=== PATIENT | male | born 1960 | race Caucasian/White ===

== ENCOUNTER 2017-02-05 06:35 | Observation (INO) | payer BC, MEDICARE ==
[2017-01-30 09:00] LABS: BASOPHILS 0.3 %; BASOPHILS ABSOLUTE 0.02 10/3/uL (0.0-0.16); EOSINOPHILS 3.3 %; EOSINOPHILS ABSOLUTE 0.24 10/3/uL (0.0-0.53); HEMATOCRIT 41.4 % (40.0-51.0); HEMOGLOBIN 14.4 g/dL (13.6-17.8); IMMATURE GRANULOCYTES 0.1 %; IMMATURE GRANULOCYTES ABSOLUTE 0.01 10/3/uL (0.0-0.11); LYMPHOCYTES 31.2 %; LYMPHOCYTES ABSOLUTE 2.28 10/3/uL (0.67-4.30); MANUAL DIFF NO %; MEAN CORPUS HGB CONC 34.8 g/dL (32.0-36.0); MEAN CORPUSCULAR HEMOGLOB 32.9 pg (26.0-34.0); MEAN CORPUSCULAR VOLUME 94.5 fL (80-100); MEAN PLATELET VOLUME 10.1 fL (9.2-13.0); MONOCYTES 8.1 %; MONOCYTES ABSOLUTE 0.59 10/3/uL (0.21-1.20); NEUTROPHILS ABSOLUTE 4.16 10/3/uL (2.02-8.40); PLATELET COUNT 170 10/3/uL (150-400); RBC DISTRIBUTION WIDTH 13.5 % (12.0-16.0); RED CELL COUNT 4.38 10/6/uL (4.7-6.1); WHITE BLOOD CELLS 7.3 10/3/uL (4.5-10.5)
[2017-01-30 11:35] LABS: BUN (BLOOD UREA NITROGEN) 16 MG/DL (6-23); CHLORIDE, SERUM 109 MMOL/L (96-112); CO2 (CARBON DIOXIDE) 28 MMOL/L (24-34); CREATININE 1.24 MG/DL (0.70-1.30); GFR AFRICAN AMERICAN 74 ML/MIN (>=60); GFR NON AFRICAN AMERICAN 64 ML/MIN (>=60); POTASSIUM, SERUM 4.4 MMOL/L (3.5-5.3); SODIUM, SERUM 145 MMOL/L (135-148)
[2017-01-30 11:36] LABS: GLUCOSE, SERUM 117 MG/DL (60-99)
--- NOTE | ~2017-02-05 | OP ---
Record Of Operation [place] [id number] [place]. [address] NAME: EVA WADDELL : 58 STATUS : ADM Alfa PAT#: [id number] AGE: 56 ADM/REG DATE : 02/05/17 MR#: [id number] REPORT SERV DATE: 02/06/17 DICTATED BY: HARJINDER PEREA DATE: 02/06/17 REPORT STATUS : Draft TRANSCRIBED BY: MODL DATE: 02/06/17 DATE OF PROCEDURE: 02/05/2017 SURGERY PERFORMED AT: [facility]. SURGEON: Harjinder Perea D.P.M. IAP DISPLAYS ANALYST SURGEON: Joao Anderson DPM PREOPERATIVE DIAGNOSES: 1. Gastrocnemius equinus. 2. Unstable left flatfoot deformity secondary to left posterior tibial tendon dysfunction. POSTOPERATIVE DIAGNOSES: 1. Gastrocnemius equinus. 2. Unstable left flatfoot deformity secondary to left posterior tibial tendon dysfunction. PROCEDURES: 1. Left gastrocnemius recession. 2. Left Bassett calcaneal osteotomy. 3. Left medial displacement calcaneal osteotomy. 4. Left FDL tendon transfer. ANESTHESIA: General. HEMOSTASIS: 350 mmHg thigh tourniquet. ESTIMATED BLOOD LOSS: 50 mL. MATERIALS: 2-0 Vicryl, 3-0 Vicryl, skin royer, 2-0 and 0 FiberTape with Arthrex 7 mm Bio- Tenodesis screw and 3.5 mm Bio-Tenodesis screw. INJECTABLES: 40 mL of 1:1 mixture of 1% Xylocaine plain and 0.5% Marcaine plain. COMPLICATIONS: None. INDICATIONS: This is a 56-year-old gentleman with a longstanding history of multiple orthopedic maladies including chronic pain associated with degenerative joint disease as well as pain in both feet secondary to flatfoot deformity. The patient states that he has gradually developed more pain in his left foot over time, and clinical examination was consistent with severe collapse of the left medial longitudinal arch as well as hyperpronation of the left foot. Hyperpronation was indicated by a severely valgus resting calcaneal stance position of the left foot as compared to the right foot. The patient had difficulty with bilateral heel elevation as well as being unable to raise the left heel on his own. Clinical examination was consistent with instability of the midtarsal joint as well as gastrocnemius equinus as noted with a Silfverskiold test. Conservative care Record Of Operation [place] [address] [place]. [address] NAME: EVA WADDELL : 58 STATUS : ADM Alfa PAT#: [id number] AGE: 56 ADM/REG DATE : 02/05/17 MR#: [id number] REPORT SERV DATE: 02/06/17 DICTATED BY: HARJINDER PEREA DATE: 02/06/17 REPORT STATUS : Draft TRANSCRIBED BY: BIMAL DATE: 02/06/17 including orthotic management was utilized. The patient was placed in an Lina-type ankle foot orthotic to help control the instability in the left foot and stabilize the medial longitudinal arch. The patient had little relief with this device. MR examination of the left foot did reveal increased signal within the posterior tibial tendon consistent with a chronic tear of the posterior tibial tendon. Discussed at length with the patient the alternatives, benefits, possible complications of addressing his stage II posterior tibial tendon dysfunction surgically. Discussed with the patient that since this is stage II disease of the tendon that this could be repaired with osteotomy and tendon transfer versus rearfoot fusion. Recommended stabilizing the midtarsal joint through an Bassett calcaneal osteotomy, as well as addressing severe valgus of the left heel through a medial displacing medial displacement calcaneal osteotomy. We also discussed replacing the diseased tendon with the flexor digitorum longus tendon in order to further support the medial longitudinal arch. We discussed with the patient that a tendon transfer alone would not work without correcting the osseous deformities; the patient understood. We also discussed the deforming force of the Equinus upon the arch and recommended addressing this with a gastrocnemius recession. The procedures and recovery period were discussed at length with the patient. The patient understands that he will be nonweightbearing for at least eight weeks. No promises or guarantees were given. The patient was scheduled for surgery. BRIEF SUMMARY OF OPERATION: The patient was brought to the operating room, transferred to the operative table in supine position. Appropriate monitoring including EKG, blood pressure, and pulse oximeter were attached to the patient and found to be in good working order. IV access was established by Anesthesia. The patient received preoperative antibiotics. After patient was identified by the surgeon, general anesthesia was induced. The patient's left foot and leg were then prepped and draped in the usual sterile manner. Left foot and leg were elevated and exsanguinated. Pneumatic thigh tourniquet was raised to 350 mmHg. Attention was directed towards the medial aspect of the left leg just inferior to the medial head of the gastrocnemius tendon. A longitudinal incision was made just posterior to the medial border of the left tibia. Incision was deepened with blunt dissection. Superficial veins were identified and ligated via electrocautery. Neurovascular structure identified and retracted from the operative site. Exposure to the deep fascia was carried out and the deep fascia was incised exposing the medial aspect of the soleus muscle belly as well as the gastrocnemius aponeurosis. The aponeurosis was identified and isolated. The aponeurosis was transected horizontally in a Yu-type fashion. This was done with the left knee extended and good release of the aponeurosis was noted with 10 degrees of dorsiflexion of the left ankle with the knee extended, which was not possible prior to the recession of the gastrocnemius aponeurosis. The operative site was irrigated with normal saline. Deep fascia was reapproximated with 3-0 Vicryl suture. The subcutaneous tissue was also reapproximated with 3-0 Vicryl suture and skin was reapproximated with skin royer. Attention was directed toward the lateral aspect of the left foot where a curvilinear incision was made over the area of the sinus tarsi. The incision was deepened with sharp and blunt dissection. Superficial veins were identified and ligated via electrocautery. Neurovascular structures were identified, retracted from the operative site. The extensor digitorum brevis muscle belly was then identified and an incision was made in the deep Record Of Operation [address] [address] NAME: EVA WADDELL : 58 STATUS : ADM Alfa PAT#: [id number] AGE: 56 ADM/REG DATE : 02/05/17 MR#: [id number] REPORT SERV DATE: 02/06/17 DICTATED BY: HARJINDER PEREA DATE: 02/06/17 REPORT STATUS : Draft TRANSCRIBED BY: BIMAL DATE: 02/06/17 fascia just inferior to the muscle belly. The muscle belly was retracted superiorly, deep fascia retracted inferiorly. The peroneal tendons were also identified and they were retracted inferiorly as well. This exposed the lateral wall of the calcaneus just posterior to the calcaneocuboid joint. The calcaneocuboid joint was identified as well via fluoroscopy. Care was maintained not to disrupt the ligaments of the calcaneocuboid joint. The middle facet of the subtalar joint was identified via fluoroscopy and the area was marked on the lateral wall of the calcaneus. This area was measured to be approximately a centimeter proximal to the calcaneocuboid joint. The osteotomy was created in a through and through fashion parallel to the calcaneocuboid joint at this site. Once the osteotomy was completed, the osteotomy was distracted. An allogenic iliac crest tricortical wedge was then shaped to approximately 1 cm in width, and inserted into the osteotomy site lengthening the lateral column of the left foot. This in turn resulted in further stability to the metatarsal joint and plantarflexion of medial longitudinal arch by tightening the peroneus longus tendon. Good position of the bone graft and distraction to the osteotomy was confirmed via fluoroscopy. Operative site was copiously irrigated with normal saline. Attention was directed toward the lateral aspect of the left foot near the posterior calcaneus. With use of a surgical pin and fluoroscopy, the location of the medial calcaneal displacement osteotomy was identified. Adequate position of the pin at the site of the osteotomy was noted on the FluoroScan and this was marked on the skin. An incision was made over this area. Dissection through the superficial fascia was carried out via blunt dissection. Superficial veins were identified and ligated via electrocautery. The periosteum on the lateral wall of the calcaneus was identified and incised via sharp dissection. The periosteum was reflected exposing the lateral wall of the calcaneus. A through and through osteotomy in direction of the same line as the incision was performed. Once the osteotomy was completed, the posterior tuber of the calcaneus was translocated medially in order to centralize the calcaneus under the leg. Rigid internal fixation via good AO technique was then achieved at this osteotomy with a with a cannulated 6.7 mm partially-threaded Arthrex bone screw. Good position of the screw was confirmed via fluoroscopy within the body of the calcaneus. This was done in a percutaneous fashion through the posterior aspect of the left heel. The operative site was copiously irrigated with normal saline as well. Attention was directed toward the medial longitudinal arch where a curvilinear incision was made starting at the inferior tip of the tibial malleolus and extending out to the area of the medial aspect of the medial cuneiform. Incision was deepened with sharp and blunt dissection. Superficial veins were identified and ligated via electrocautery. Dissection was then carried out through the deep fascia identifying the posterior tibial tendon. The posterior tibial tendon was followed to its insertion at the navicular tuberosity where it was noted that the navicular was displaced slightly inferior on the head of the talus. The posterior tibial tendon was released from its insertion into the navicular tuberosity. The tendon was noted to be enlarged with some degeneration noted within the central portion of the tendon. Once released from its insertion, the distal aspect of posterior tibial tendon was removed. An incision was made in the floor of the posterior tibial tendon sheath exposing the tendon sheath and tendon of the flexor digitorum longus. The flexor digitorum longus tendon was exposed heading distally to the area of the master knot of Alvin. The Record Of Operation [facility] [address] [facility] [place]. [address] NAME: ANNALEE WADDELLLOGAN DUFF : 58 STATUS : ADM Alfa PAT#: [id number] AGE: 56 ADM/REG DATE : 02/05/17 MR#: [id number] REPORT SERV DATE: 02/06/17 DICTATED BY: HARJINDER PEREA DATE: 02/06/17 REPORT STATUS : Draft TRANSCRIBED BY: BIMAL DATE: 02/06/17 tendon was then transected just proximal to the master knot. A stitch was placed in the distal aspect of the flexor digitorum longus tendon in order to grasp the tendon to pass it through the transfer site. This was then wrapped in saline soaked gauze. It was noted that the spring ligament was also stretched due to the chronic flatfoot deformity. A suture anchor was placed in the medial aspect of the sustentaculum reynaldo parallel to the longitudinal axis of the calcaneus. This suture was going to be utilized to support the spring ligament through a drill hole in the navicular. The percutaneous pin was passed through the navicular tuberosity from superior to inferior. It was overdrilled with the reamer that was 6 mm. This corresponded to the diameter of the flexor digitorum longus tendon. The stitch used to support the spring ligament as well as the flexor digitorum longus tendon was passed through the drill hole superior to inferior. Both the support suture for the spring ligament and the flexor digitorum longus tendon transfer was secured with a 7 mm Arthrex Bio-Tenodesis screw. A slightly larger Bio-Tenodesis screw was utilized as the bone appeared to be slightly soft. The tendon transfer was secured in place with the foot and ankle in neutral position. It was noted that the tendon was secure and intact. There did not appear to be any laxities within the tendon. There did not appear to be any laxities within the repair of the spring ligament as well. Operative site was copiously irrigated with normal saline. The deep fascia and posterior tibial tendon sheath was reapproximated with 2-0 Vicryl suture. Subcutaneous tissue was reapproximated with 2-0 and 3-0 Vicryl suture. The skin was reapproximated with skin royer. Attention was directed toward the lateral incisions where the deep fascia over the Bassett calcaneal osteotomy distally was reapproximated with 2-0 Vicryl suture. Subcutaneous tissue was reapproximated with 3-0 Vicryl suture and skin was reapproximated with skin royer. The posterior calcaneal osteotomy site the subcutaneous tissue was reapproximated with 3-0 Vicryl suture and skin was reapproximated with skin royer. Skin royer were also utilized to reapproximate the small incision made over the posterior heel for insertion of the screw across the medial calcaneal displacement osteotomy. Standard postoperative dressing including Xeroform, dry sterile gauze were applied to the left foot. The tourniquet was let down and capillary refill was noted to return to the foot immediately and be well within normal limits and under three seconds. Operative site was infiltrated with 40 mL of a 1:1 mixture of 1% Xylocaine plain and 0.5% Marcaine plain prior to application of the postoperative dressing. The patient was then placed in a modified Teresa compression dressing with an AO splint. This was done with the ankle joint in neutral position. Good capillary refill to the distal toes on the left foot was noted after application of the postop dressings and splint. The patient tolerated the procedure and anesthesia well. The patient left the operating room and returned to recovery room with vital signs stable and vital signs intact. Neurovascular status of the upper extremity was confirmed to be within normal limits in the recovery room. The patient to be admitted to [facility] for 23-hour observation for postoperative antibiotics and postoperative pain management as well as DVT prophylaxis. Reiterated to the patient's family strict nonweightbearing of the left foot, and Physical Therapy consultation has been ordered to help the patient with crutch training as well as transfer training. Provided the patient's pain is managed well with p.o. pain medication, the patient will be able to go home tomorrow. The patient is to follow up in the office approximately in one week's time. The patient and the patient's family were instructed to Record Of Operation [facility] [address] [facility] [place]. [address] NAME: EVA WADDELL : 58 STATUS : ADM Alfa PAT#: [id number] AGE: 56 ADM/REG DATE : 02/05/17 MR#: [id number] REPORT SERV DATE: 02/06/17 DICTATED BY: HARJINDER PEREA DATE: 02/06/17 REPORT STATUS : Draft TRANSCRIBED BY: BIMAL DATE: 02/06/17 contact the office with any questions or concerns. /MODL Harjinder Perea D.P.M. / [id number] CC: George Barnes M.D.
--- NOTE | ~2017-02-05 | CN ---
Consultation Report [facility] [address] [place]. [address] NAME: EVA WADDELL : 58 STATUS : ADM Alfa PAT#: [id number] AGE: 56 ADM/REG DATE : 02/05/17 MR#: [id number] REPORT SERV DATE: 02/05/17 DICTATED BY: LUCIO SAHA DATE: 02/05/17 REPORT STATUS : Draft TRANSCRIBED BY: MODL DATE: 02/05/17 INTERNAL MEDICINE CONSULTATION DATE OF CONSULTATION: 02/05/2017 REASON FOR CONSULTATION: Medical management, significant chronic pain management, the patient sees Dr. Dean for his pain management concerns. HISTORY OF PRESENT ILLNESS: This is a 56-year-old male with known history of significant degenerative disc disease, required a laminectomy in the past, has had history of nephrolithiasis and kidney stone removal, significant osteoarthritis, known history of right wrist ORIF, left rotator cuff repair. The patient also with known history of depression, BPH significant, chronic opioid dependence at baseline, gets Dilaudid 4 mg 4 times a day by Pain Management with Lyrica 150 p.o. t.i.d., sees Dr. Dean. The patient has had increasing left foot pain with "flat feet" as a result, was admitted by Dr. Perea, hot frame tender who did a left tendon revision, left heel revision the cast from knee down, postop day 0. The patient is placed on a SPEECH AND HEARING DIRECTOR pump. The patient understands risks of respiratory depression. PAST MEDICAL HISTORY: See above. PAST SURGICAL HISTORY: See above. The patient denies any fevers, chills, nausea, vomiting, diarrhea, chest pain, or chest pressure. REVIEW OF SYSTEMS: Review of systems done, see HPI. Otherwise, negative. SOCIAL HISTORY: Does not currently smoke, do drugs or do alcohol. Only takes his prescription narcotics. FAMILY HISTORY: Hypertension at least in one parent. OBJECTIVE: VITAL SIGNS: 124/74, 96% on 2 L, 96 pulse, 99.1 temp. GENERAL: No acute distress. HEENT: PERRLA. No scleral icterus. CARDIOVASCULAR: Regular rate and rhythm. No murmur. RESPIRATORY: Decreased breath sounds bibasilar. ABDOMEN: Nontender nondistended. Positive bowel sounds. EXTREMITIES: No edema. No ecchymosis. NEUROLOGIC: A and O x4/4. GCS of 15. He has pinpoint pupils. PSYCH: . Consultation Report [facility] [address] [address] NAME: EVA WADDELL : 58 STATUS : ADM Alfa PAT#: [id number] AGE: 56 ADM/REG DATE : 02/05/17 MR#: [id number] REPORT SERV DATE: 02/05/17 DICTATED BY: LUCIO SAHA DATE: 02/05/17 REPORT STATUS : Draft TRANSCRIBED BY: BIMAL DATE: 02/05/17 IMPRESSION RECOMMENDATION: 1. Hypertension with tachyarrhythmia history in the past, is on atenolol, apparently well controlled. 2. Chronic opioid dependence and pain, takes Dilaudid 4 mg 4 times a day. 3. Neuropathic pain with Lyrica 150 p.o. t.i.d. PLAN: We will try to reduce SPEECH AND HEARING DIRECTOR. The patient is comfortable at this point, still on oxygen likely due to atelectasis and post-op anesthesia contribution. We will try to reduce his SPEECH AND HEARING DIRECTOR from 0.2 dose every 20 minutes, max lockout 0.6 every hour, and as an outpatient, we will defer to Dr. Dean, primarily recommended 4 mg 6 times a day with Lyrica 150 four times a day. Family stated that Dr. Dean advised to resume his home dose aspirin and atenolol, resume the aspirin tomorrow to ensure hemostasis is maintained, it takes 24 to 48 hours to secondary hemostasis. We will also have pharmacy evaluate the MAR, give incentive spirometry. Start on heparin regarding history of hypertension. See rest of my orders. All questions were answered. Thank you very much for this consultation. We will follow along with you. It took over 60 minutes to do. FLAVIO/BIMAL Lucio Saha DO / [id number] CC: George Barnes M.D.
[~2017-02-05 06:35] MED LIST: ABILIFY5 PO; AMBIEN CR12.5 MG PO; ARIMIDEX1 PO; ASAB PO; ASTELIN NAS; ATEN25 PO; CA-MG-ZINC PO; CRANBERRY500 MG PO; CYANO1000T PO; DEPO-TESTOS200 MG/ML IM; DIL4TAB PO; DLPA; DLPA PO; DOLOPHINE10 MG PO; FISH-EPA1000 MG PO; FLECTOR1.3 % TOP; FLOMAX4 PO; GLUCCHONDR PO; HCTZ25B PO; IBU400 PO; KLOR-CON M2020 MEQ PO; LYRICA150 MG PO; METHOC750B PO; MULTIPLE VIT PO; NEUR300 PO; PERCOCET1 TA4 PO; PROVIGIL2 PO; ROXICODONE15 MG PO; SAVELLA50 MG PO; SENTAB PO; TRAZ100 PO; VITAMIN B-121000 MC1 SL; VITD PO; VITE PO; WELLSR150 PO; ZOFRAN8 PO
[2017-02-06 07:32] LABS: BASOPHILS 0.1 %; BASOPHILS ABSOLUTE 0.01 10/3/uL (0.0-0.16); EOSINOPHILS 0 %; HEMATOCRIT 37.5 % (40.0-51.0); IMMATURE GRANULOCYTES 0.2 %; IMMATURE GRANULOCYTES ABSOLUTE 0.02 10/3/uL (0.0-0.11); LYMPHOCYTES ABSOLUTE 2.04 10/3/uL (0.67-4.30); MANUAL DIFF NO %; MEAN CORPUS HGB CONC 34.7 g/dL (32.0-36.0); MEAN CORPUSCULAR HEMOGLOB 33.2 pg (26.0-34.0); MEAN CORPUSCULAR VOLUME 95.7 fL (80-100); MEAN PLATELET VOLUME 10.5 fL (9.2-13.0); MONOCYTES 6.9 %; NEUTROPHILS 72.8 %; NEUTROPHILS ABSOLUTE 7.44 10/3/uL (2.02-8.40); PLATELET COUNT 173 10/3/uL (150-400); RBC DISTRIBUTION WIDTH 13.8 % (12.0-16.0); RED CELL COUNT 3.92 10/6/uL (4.7-6.1); WHITE BLOOD CELLS 10.2 10/3/uL (4.5-10.5)
[2017-02-06 07:47] LABS: BUN (BLOOD UREA NITROGEN) 11 MG/DL (6-23); CALCIUM, SERUM 8.5 MG/DL (8.5-10.4); CHLORIDE, SERUM 107 MMOL/L (96-112); CO2 (CARBON DIOXIDE) 26 MMOL/L (24-34); CREATININE 1.01 MG/DL (0.70-1.30); GFR AFRICAN AMERICAN 95 ML/MIN (>=60); GFR NON AFRICAN AMERICAN 82 ML/MIN (>=60); GLUCOSE, SERUM 144 MG/DL (60-99); PHOSPHORUS, SERUM 2.7 MG/DL (2.5-4.5); POTASSIUM, SERUM 3.9 MMOL/L (3.5-5.3); SODIUM, SERUM 143 MMOL/L (135-148)
[2017-02-06 17:51] LABS: PROCALCITONIN <0.05 ng/mL (<0.5)
[2017-02-07] MEDS ORDERED: DSS (14:28)
[2017-02-07] MEDS ORDERED: DIL2TAB PO (14:35)
== END 2017-02-07 16:37 | disposition home or self-care (01) ==
LOC: SDC 06:35 → SDC/OF 13:54 → 1SO 15:54
PROVIDERS: Podiatrist; Podiatrist Foot & Ankle Surgery
PROC: 0LXP0ZZ Transfer Left Lower Leg Tendon, Open Approach (ICD-10-PCS; 2017-02-05)
PROC: 0LSP0ZZ Reposition Left Lower Leg Tendon, Open Approach (ICD-10-PCS; principal; 2017-02-05 08:15)
PROC: 0QBM0ZZ Excision of Left Tarsal, Open Approach (ICD-10-PCS; 2017-02-05 08:15)
DX: M21.42 Flat foot [pes planus] (acquired), left foot (principal); M21.6X2 Other acquired deformities of left foot; M19.90 Unspecified osteoarthritis, unspecified site; G47.33 Obstructive sleep apnea (adult) (pediatric); Z99.89 Dependence on other enabling machines and devices; F32.9 Major depressive disorder, single episode, unspecified; Z88.5 Allergy status to narcotic agent; Z88.8 Allergy status to other drugs, medicaments and biological substances; Z79.82 Long term (current) use of aspirin; Z79.899 Other long term (current) drug therapy; Z98.1 Arthrodesis status; Z98.890 Other specified postprocedural states; Z98.41 Cataract extraction status, right eye; Z98.42 Cataract extraction status, left eye
CPT/HCPCS: 80048; 82533; 83036; 83735; 84100; 84145; 85025; 87040; 93005; 96372; 96374; 96375; 96376; 97110-GP; 97116-GP; 97161-GP; 97530-GP; A9270-GY; C1713; C1776; G0378; G8978-CK-GP; G8979-CJ-GP; J0690; J1170; J2250; J2405; J2710; J3010